=== PATIENT | female | born 1980 | race Caucasian/White ===

== ENCOUNTER 2018-12-14 16:40 | Observation (INO) ==
[2018-12-14] MEDS ORDERED: SODIUM CHLORIDE 0.9% INJ SCH (18:15)
--- NOTE | 2018-12-14 18:38 | Diag Imaging Result Doc PS360 ---
EXAM: CHEST-2 VIEWS HISTORY: SOB TECHNIQUE: Chest two views COMPARISON: 09/11/2014 FINDINGS: The lungs are well expanded. The heart is not enlarged. The vessels are not distended. There are no infiltrates. No pleural effusions. Left lower lobe granuloma. IMPRESSION: No acute abnormality. Electronically signed by Jermaine Birmingham 12/14/2018 6:35 PM
[2018-12-14 18:54] LABS: BASO# 0.02 X1000 (0.0-0.2); BASO% 0.2 % (0.0-0.8); EOS% 1.1 % (0.0-10.0); HEMATOCRIT 42.2 % (37.0-47.0); HEMOGLOBIN 14.1 g/dL (12.0-16.0); LYMPH# 3.44 X1000 (1.2-3.4); LYMPH% 39.5 % (20.5-51.1); MCHC 33.4 g/dL (33-37); MCV 98.8 FL (81-99); MONO# 1.07 X1000 (0.11-0.59); MONO% 12.3 % (1.7-9.3); NEUT# 4.07 X1000 (1.4-6.5); NEUT% 46.9 % (42.2-75.2); PLT 183 X1000 (130-400); RBC 4.27 XMIL (4.2-5.4); RDW 13.1 % (11.5-14.5)
[2018-12-14 19:10] LABS: AGAP 16; AMYLASE 34 U/L (20-200); BUN 6 mg/dL (8-22); C REACTIVE PROT QUANT 3.34 mg/L (0.00-5.00); CALCIUM 8.9 mg/dL (8.8-10.2); CHLORIDE 100 mmol/L (98-107); COSMO 273; CREATININE 0.8 mg/dL (0.5-0.9); ESTIMATED GFR > 60; GLUCOSE 95 mg/dL (70-104); POTASSIUM 3.9 mmol/L (3.5-5.1); SODIUM 138 mmol/L (136-145); TCO2 22 mmol/L (25-35)
[2018-12-14 19:12] LABS: AGAP 16; ALB/GLOB RATIO 0.7; ALBUMIN 2.7 g/dL (3.5-5.0); ALKALINE PHOSPHATASE 187 U/L (32-104); BUN 6 mg/dL (8-22); CALCIUM 8.8 mg/dL (8.8-10.2); CHLORIDE 100 mmol/L (98-107); COSMO 273; CREATININE 0.8 mg/dL (0.5-0.9); ESTIMATED GFR > 60; GLUCOSE 95 mg/dL (70-104); GOT 68 U/L (10-30); GPT 35 U/L (10-36); LIPASE 7 U/L (13-60); MAGNESIUM 1.4 mg/dL (1.5-2.7); POTASSIUM 3.9 mmol/L (3.5-5.1); SODIUM 138 mmol/L (136-145); TCO2 22 mmol/L (25-35); TOTAL BILIRUBIN 1.03 mg/dL (0.20-1.00); TOTAL PROTEIN 6.7 g/dL (6.3-8.3)
[2018-12-14 19:32] LABS: TSH 5.3 uIUmL (0.27-4.20)
[2018-12-14] MEDS ORDERED: MAGNESIUM SULFATE 2 GM/S.W.I. 2 GM/50 ML IVPB IV ONE (20:38)
[2018-12-14] MEDS: ZANAFLEX PO SCH (21:27)
[2018-12-14] MEDS: ULTRACET 37.5MG/325MG PO SCH (21:27)
[2018-12-14] MEDS: PEPCID IV SCH (21:27)
[2018-12-14] MEDS: LOVENOX SUBQ SCH (21:28)
[2018-12-14] MEDS: AMBIEN PO SCH (21:28)
--- NOTE | 2018-12-14 21:38 | HISTORY AND PHYSICAL ---
CHIEF COMPLAINT: Decreased sensation from mid breast level all the way down since last week. 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 Upon examination, there was decreased sensation below breast level. No weakness. History of seizures. No headaches. No vision problems. No history of incontinence of bladder and bowel. Basically admitted to the hospital to rule out transverse myelitis. Family wants also to rule out multiple sclerosis. Significant family history. Basically admitted to the hospital for observation for diagnosis. PAST MEDICAL HISTORY: Chronic anxiety, hypertension, reflux disease, depression, metabolic syndrome, recurrent pancreatitis due to pancreas divisum, vitamin B12 deficiency. PAST SURGICAL HISTORY: Cholecystectomy, history of ERCP with stent. MEDICATIONS: Prilosec 40 mg daily, Carafate 1 g b.i.d., Ambien 10 at bedtime, Prozac 40 mg daily, Ultracet 1 tablet q.6, Zofran as needed for nausea, vitamin D 50,000 units once a week, Tizanidine 8 mg at bedtime. ALLERGIES: Not known. SOCIAL HISTORY: , disabled, lives in [place]. No smoking. No alcohol. 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 FAMILY HISTORY: Mother with history of kidney stones. Father has hypertension, diabetes. REVIEW OF SYSTEMS: HEENT: No headache, seizures. No vision problem. No earache. No sore throat. Neck: No neck rigidity. Cardiopulmonary: No chest pain, shortness of breath, PND, orthopnea. Gastrointestinal: No nausea, vomiting, abdominal pain. No hematochezia or bleeding per rectum. Genitourinary: No history of hesitancy, frequency, dysuria. No swelling of feet. No weakness. Neurological: Decreased sensation at T4 level all the way down. No weakness noted. PHYSICAL EXAMINATION: VITAL SIGNS: Temperature is 98 degrees, tachycardic. Blood pressure is high, 5 feet 11 inches and 249 pounds. HEENT: Atraumatic, normocephalic. Pupils equal, reactive to light. TMs are normal. Nose and throat are within normal limits. NECK: Supple. No lymphadenopathy. No goiter. CHEST: Bilateral air entry. HEART: Sounds are regular. No murmur. ABDOMEN: Belly is soft, nontender. Good bowel sounds. No masses palpable. EXTREMITIES: No peripheral edema or cyanosis. NEUROLOGICAL: No obvious neurological deficits except decreased sensory exam at T5 level. Reflexes are intact. INVESTIGATIONS: CBC: White cell count 8.7, hematocrit 42, platelets 183,000. SMA 7 is normal. Magnesium 1.4, total bilirubin 1.0, AST 68, alkaline phosphorous 187, amylase 34, lipase 7. B12 is high. TSH 5.3. Chest x-ray: No acute abnormality. ASSESSMENT AND PLAN: 1. A 38-year-old white female presented to my office with a 2-week history of sensory perception changes from the breast level, without any weakness, incontinence. No history of rash. Rule out transverse myelitis. Plan is MRI of the brain, T- spine and L- spine. Check the B12 and copper levels. Neurology consult. 2. Hypomagnesemia. Replace the magnesium. 3. Deep venous thrombosis and gastrointestinal prophylaxis with Lovenox and Pepcid. 4. Reconcile home medications and based on that further recommendations will be followed. cc: Sherman Taylor MD MTDD
[2018-12-15] MEDS: ULTRACET 37.5MG/325MG PO SCH ×3 (03:22→13:59)
[2018-12-15] MEDS: PRILOSEC PO SCH (09:35)
[2018-12-15] MEDS: PEPCID IV SCH ×2 (09:36→20:08)
[2018-12-15] MEDS: PROZAC PO SCH (09:36)
--- NOTE | 2018-12-15 13:20 | Diag Imaging Result Doc PS360 ---
MRI BRAIN W/WO CONTRAST - 12/15/2018 INDICATION: CVA COMPARISON: Head CT 09/10/2014 FINDINGS: There is no area of restricted diffusion. The ventricles and sulci are normal in size and contour. No intracranial mass or hemorrhage. No area of abnormal contrast enhancement. Midline structures including the optic chiasm and pituitary are normal. IMPRESSION: Negative exam. Electronically signed by Fermin Das 12/15/2018 1:18 PM
--- NOTE | 2018-12-15 13:26 | Diag Imaging Result Doc PS360 ---
MRI LUMBAR SPINE W/O CONTRAST - 12/15/2018 INDICATION: back pain COMPARISON: None FINDINGS: Alignment is anatomic. Vertebral body heights and intervertebral disc spaces are preserved. There is a benign hemangioma in L3. Otherwise bone marrow signal is normal. There is some disc desiccation at L4-L5 and L5-S1. No disc herniation. No central canal or neural foraminal stenosis. There is moderate facet degeneration bilaterally at L4-L5 and L5-S1. IMPRESSION: Early lumbar spondylosis. No acute disease. Electronically signed by Fermin Das 12/15/2018 1:24 PM
--- NOTE | 2018-12-15 14:09 | Diag Imaging Result Doc PS360 ---
MRI THORACIC SPINE W/WO CON - 12/15/2018 INDICATION: Transverse myletis COMPARISON: None FINDINGS: Alignment is anatomic. Vertebral body heights and intervertebral disc spaces are preserved. Bone marrow signal is normal. The thoracic cord is normal in signal. No central canal stenosis. No disc herniations. No mass or adenopathy. No abnormal contrast enhancement. IMPRESSION: Negative exam. Electronically signed by Fermin Das 12/15/2018 2:07 PM
--- NOTE | 2018-12-15 14:35 | CONSULTATION ---
DATE OF CONSULTATION: 12/15/2018 LOCATION: Room 311. HISTORY OF PRESENT ILLNESS: Ms. Senior is 38 years old, and she reports numbness from the chest down. History from the patient is that she noticed numbness across her abdomen bilaterally approximately a month ago. She reports this was prominent, confined to the area between the breasts and the groin, and then resolved spontaneously in a few days. About 2 weeks later, she reports similar numbness across the abdomen, and numbness then descended her legs to the knees, then ascended to just above the breasts, and then descended to the feet, always symmetric. She has had some soreness in the limb joints. She believes she was having some gait difficulty, and thinks she might have fallen, but she is not able to report anything specifically. She reports noticing some bruises that she cannot account for, and she thinks she might have fallen. She had not had any incontinence until she walked to the bathroom today and experienced fecal incontinence briefly. She has not lost bladder control. She reports no problems above the neck, and specifically no vision disturbance, facial asymmetry, trouble with speech or swallowing. She has not had trouble using her arms. She reports past history of "seizures," and she reports possible seizure episode within the last few weeks. She does not take medicine for seizure management. She reports a family history of multiple sclerosis. Workup here includes lab showing AST 68, alkaline phosphatase 187, TSH 5.3 (computer record shows TSH 1.7 and free T4 of 1.05 in 2015, no free T4 reported this admission). Imaging this admission includes a brain MRI and lumbar MRI, both completely unremarkable. She has had [address] cervical spine CT showing nothing remarkable. She has been afebrile here. MEDICATIONS: Home medication list includes fluoxetine, ondansetron, promethazine, tizanidine, tramadol/acetaminophen, zolpidem, calcium, ergocalciferol, multivitamin, sucralfate. PHYSICAL EXAMINATION: She is awake, alert, mostly attentive. Speech is not dysarthric. Language function is intact. Memory seems good. Head and neck are unremarkable. Straight leg raising is negative bilaterally. Hands and feet are warm. Visual brantley are full to confrontational finger counting. Extraocular movements are full. Facial motility is normal and symmetric. Facial sensation is intact. Gag is intact. Tongue is midline. She can hear. Shoulder shrug is equal. Strength is normal in the arms and legs on careful testing. Limb tone is symmetric. Plantar response is flexor bilaterally. Reflexes are 1+ at the ankles, 2+ at the knees, 1+ at the wrists, all symmetric. She reports diminished pinprick and light touch appreciation over the legs and abdomen. She has some inconsistent responses to pinprick testing over the right hand. Pinprick is intact over the left hand. Proprioception is normal at the great toe MTP joint bilaterally. I did not test her gait. IMPRESSION: 1. Subjective numbness below the chest, with no definite objective neurologic finding. Negative imaging is reassuring. Cervical MRI would be a reasonable next step if her complaints persist. I encouraged her to be careful with activities, particularly gait. I do not have any other suggestion right now. 2. She reports "seizure." I saw her in the hospital in 2014 after several possible seizure episodes. EEG and imaging were negative then. Those episodes were eventually attributed to alcohol withdrawal. I do not find report that she had seizure medication recommended. If Dr. Taylor would like to have the seizure question further evaluated, that can be considered inpatient or outpatient. Thank you for asking Neurology to see Ms. Senior. cc: MD Sherman Herrmann III, MD MTDD
[2018-12-15] MEDS ORDERED: TORADOL IV ONE (19:44)
[2018-12-15] MEDS ORDERED: TORADOL IV PRN (19:45)
[2018-12-15] MEDS: ZANAFLEX PO SCH (20:08)
[2018-12-15] MEDS: LOVENOX SUBQ SCH (20:08)
[2018-12-15] MEDS: AMBIEN PO SCH (20:08)
--- NOTE | 2018-12-15 20:42 | PROGRESS NOTE ---
DATE: 12/15/2018 SUBJECTIVE: Patient still has some numbness, waiting for workup. No neurological deficits. No incontinence of urine. Dr. Cid has been consulted. OBJECTIVE: Vital Signs: Temperature is 98 degrees, pulse 95. Vitals are stable. General: Heavy-set. HEENT: Within normal limits. Neck: Supple. Chest: Clear. Heart: Sounds are regular. Abdomen: Belly is soft, nontender. Neurologic: No obvious neurological deficits noted. INVESTIGATIONS: B12 is normal. Free T4 slightly low. TSH is high. Lipase is normal. Amylase is normal. ASSESSMENT AND PLAN: 1. Sensory deficits at T4 level. Rule out transverse myelitis. Waiting for MRI of thoracic spine and MRI of the brain, and Dr. Cid consulted. 2. Follow up on copper levels. 3. Hypothyroidism, subclinical. Continue to monitor. 4. Replace the magnesium. 5. Based on this, further recommendations will be followed. LEVEL OF DOCUMENTATION: [25] cc: Sherman Taylor MD MTDD
[2018-12-16] MEDS: ULTRACET 37.5MG/325MG PO SCH ×3 (01:50→08:50)
[2018-12-16] MEDS: PRILOSEC PO SCH (08:50)
[2018-12-16] MEDS: PEPCID IV SCH (08:50)
[2018-12-16] MEDS: PROZAC PO SCH (08:50)
[2018-12-16 12:10] VITALS: BP 138/109
--- NOTE | 2018-12-16 12:49 | PROGRESS NOTE ---
DATE: 12/16/2018 SUBJECTIVE: Ms. Senior had some sensory defect in T4 area and mild hypothyroidism. She had a negative brain scan, as well as a lumbothoracic spine. MRI was negative also. She had mild lumbar spondylosis. Blood pressure today was 146/96. She is complaining of too much pain, and she has multiple joint pains, including feet pains and both knee pains. Movements of the knees are painful. Her lab data has been unremarkable, except her TSH was 5.3. She had a consultation with Dr. Cid also. She has a multitude of problems. She says her pain is excruciating, and she is on tramadol every 6 hours and Toradol injections 15 mg every 6 hours p.r.n. Probably put her on some gabapentin today and see if that helps her pain. -9 cc: MD Sherman Mary MD
[2018-12-16] MEDS ORDERED: NEURONTIN PO SCH (13:00)
--- NOTE | 2018-12-17 20:22 | DISCHARGE SUMMARY ---
ADMISSION DATE: 12/14/2018 DISCHARGE DATE: 12/16/2018 FINAL DIAGNOSIS: Midback pain with sensory changes. Etiology is not clear. SECONDARY DIAGNOSES: 1. Hypertension. 2. Acid reflux disease. 3. Depression. 4. Metabolic syndrome. 5. Recurrent pancreatitis due to pancreas divisum. 6. Vitamin B12 deficiency. 7. Hypomagnesemia. 8. Chronic anxiety. 9. Subclinical hypothyroidism CONSULTS: Dr. Cid. BRIEF HISTORY: Please see the H P that was done on 12/14/2018. In brief, she is a 38-year-old, white female, with the above problems, came in with 2-week history of midback discomfort associated with no sensory feeling all the way down. No weakness. No incontinence of bladder or bowels. The patient's mother was concerned about multiple sclerosis versus white matter disease. She was very emotional. Basically, admitted to the hospital for observation. HOSPITAL COURSE: Followup workup, MRI of thoracic spine, lumbar spine, and C-spine, did not show any white matter disease. Findings were reassuring. LABORATORY: CBC: White cell count 8.7, hematocrit 42, platelets 183,000. Sodium 138, potassium 3.9, chloride 100, BUN 6, creatinine 0.8, glucose 95. Magnesium 1.4, total bilirubin 1.0, amylase is normal. Vitamin B12 is normal. TSH is slightly high, free T4 is low. Copper levels are pending. Appreciate Dr. Cid's input. We will continue to monitor as an outpatient. The patient was discharged home on 12/16/[address] Oliva. DISCHARGE MEDICATIONS: 1. Prilosec 40 daily. 2. Carafate 1 g p.o. b.i.d. 3. Ambien 10 at bedtime. 4. Prozac 40 daily. 5. Phenergan 25 mg q.6 p.r.n. 6. Ultracet 1 tablet p.o. q.6 for pain. 7. Vitamin D 50,000 units once a week. 8. Zanaflex 8 mg at bedtime. DISCHARGE INSTRUCTIONS: Outpatient follow up on pending labs. cc: MD Lisa Chen III, MD
[2018-12-18] MEDS ORDERED: VITAMIN D PO SCH (09:00)
== END 2018-12-16 14:11 | disposition home or self-care (01) ==
LOC: DIRADM → 3N 16:40
PROVIDERS: ADMIT Internal Medicine; ATTEND Internal Medicine
CPT/HCPCS: 70553; 71020; 71046; 72148; 72157; 80048; 80053; 82150; 82525; 82607; 83690; 83735; 84439; 84443; 85025; 86140; A9270; A9579; J1650; J1885; J3475; S0028

== ENCOUNTER 2019-02-05 11:21 | Inpatient (IN) ==
[2019-02-05] MEDS ORDERED: ZOFRAN ODT PO PRN (13:37)
[2019-02-05] MEDS ORDERED: CARAFATE LIQUID PO PRN (13:37)
[2019-02-05] MEDS ORDERED: ULTRACET 37.5MG/325MG PO SCH (14:00)
[2019-02-05 14:15] LABS: HEMATOCRIT 32.8 % (37.0-47.0); HEMOGLOBIN 11.1 g/dL (12.0-16.0); MCH 33.4 PG (27-31); MCHC 33.8 g/dL (33-37); MCV 98.8 FL (81-99); MPV 9.4 FL (7.4-10.4); PLT 218 X1000 (130-400); RBC 3.32 XMIL (4.2-5.4); RDW 12.8 % (11.5-14.5); WBC 3.34 X1000 (4.8-10.8)
[2019-02-05 14:16] LABS: BASO# 0.01 X1000 (0.0-0.2); BASO% 0.3 % (0.0-0.8); EOS# 0.02 X1000 (0.0-0.7); EOS% 0.6 % (0.0-10.0); LYMPH# 0.81 X1000 (1.2-3.4); LYMPH% 24.3 % (20.5-51.1); MONO# 0.06 X1000 (0.11-0.59); MONO% 1.8 % (1.7-9.3); NEUT# 2.44 X1000 (1.4-6.5)
--- NOTE | 2019-02-05 14:48 | HISTORY AND PHYSICAL ---
DATE: 02/05/2019 CHIEF COMPLAINT: Weakness in her legs and hands. PRESENT ILLNESS: This is one of a few [facility] admissions for this 38-year-old white female patient of Dr. Taylor who was hospitalized in [place] with a couple day progressive history of weakness of her legs and hands. She is unable to walk at this time. She had similar symptoms in September and was hospitalized at [facility]. She was seen by Dr. Cid at that time and no definitive diagnosis was made. She had been in [facility] under Dr. Evans. CT scan of her head with contrast was unremarkable. She had fallen and re-injured a right clavicle repair. She had surgery a week ago and after the fall refractured her right clavicle. She was sent from [place] to [facility] for neurologic evaluation and continued care since she was Dr. Taylor's patient. Other findings include urinary tract infection, generalized weakness and inability to walk, hypokalemia and decreased reflexes. 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 PAST MEDICAL HISTORY: Recent clavicle fracture and repair. CURRENT MEDICATIONS: Ambien 10 mg 1 at bedtime, tramadol q.6 hours p.r.n. pain, Zanaflex 8 mg at bedtime, omeprazole 40 mg daily, Prozac 40 mg 1 daily. ALLERGIES: None known. REVIEW OF SYSTEMS: Workup in September at [facility] and evaluation by Dr. Cid. MRI of her T- spine and lumbar spine reveal no abnormality. Apparently other workup was negative. There is questionable history of drug abuse history. She is obese and there is possibility of sleep apnea. There has been no recent weight change. FAMILY HISTORY: Significant for several family members with multiple sclerosis. SOCIAL HISTORY: Possible alcohol usage history but no significant smoking. PHYSICAL EXAMINATION: Temperature 98.7 degrees, heart rate 92, respirations 22, blood pressure 141/92, O2 saturation on room air 100%. Pain level right shoulder is 7/10.HEENT: Pupils equal, round and reactive to light. Tympanic membranes without inflammation. Pharynx benign. Heart: Regular in rate and rhythm with no murmur, rub or gallop. Lungs: Clear with no rales or rhonchi. Abdomen: Grossly obese with no mass or organomegaly. Extremities: Scar secondary to recent surgery on the right clavicle. Pain with any motion of her right shoulder. Machine [employer] Eng[employer]ver strength 2/5 bilaterally. Leg strength proximal and distal 2/5 bilaterally. Reflexes could not be elicited at knees and elbows. Rectal/Genitalia: Deferred. Sensory reveals decrease sensation in hands and feet. LABORATORY: Potassium at [place] yesterday was 2.4. CBC was normal. IMPRESSION: 1. Neuropathy of undetermined etiology. 2. Inability to stand or walk. 3. Dyspepsia. 4. Hypokalemia. 5. Possible sleep apnea. PLAN: Discussed with Dr. Cid who will see Thursday if she continues to have recurrent symptoms or worsens. Orthopedic consultation is obtained with Dr. Randall. She will be given Lyrica p.o. and IV Solu-Medrol. cc: MD Sherman Gauthier MD
[2019-02-05] MEDS: SOLU-MEDROL IV SCH ×2 (14:49→22:13)
[2019-02-05] MEDS: NS 1,000 ML IV SCH (14:50)
[2019-02-05 15:26] LABS: URINE SOURCE VOIDED
[2019-02-05 15:30] LABS: BILIRUBIN URINE NEGATIVE (NEGATIVE); BLOOD URINE TRACE (NEGATIVE); COLOR YELLOW; GLUCOSE URINE NEGATIVE (NEGATIVE); KETONE URINE NEGATIVE (NEGATIVE); LEUKOCYTES URINE MODERATE (NEGATIVE); NITRITE URINE NEGATIVE (NEGATIVE); PROTEIN URINE NEGATIVE (NEGATIVE); SP GRAVITY URINE 1.019; TURBIDITY URINE CLEAR (CLEAR); UROBILINOGEN URINE NORMAL (NORMAL)
[2019-02-05 15:31] LABS: UR EPITHELIAL CELLS <10 /HPF (<10); URINE BACTERIA NEGATIVE /HPF; URINE RBC <10 /HPF (<10); URINE WBC TNTC /HPF (<10)
[2019-02-05 15:48] LABS: UR AMPHETAMINES QUAL NONE DETECTED (NONE DETECT); UR BARBITUATES QUAL NONE DETECTED (NONE DETECT); UR BENZODIAZEPIN QUAL NONE DETECTED (NONE DETECT); UR CANNABINOIDS QUAL NONE DETECTED (NONE DETECT); UR COCAINE QUAL NONE DETECTED (NONE DETECT); UR OPIATES QUAL PRESUMPTIVE POSITIVE (NONE DETECT); UR PCP QUAL NONE DETECTED (NONE DETECT)
[2019-02-05 15:49] LABS: UR METHADONE QUAL NONE DETECTED (NONE DETECT); UR OXYCODONE QUAL NONE DETECTED (NONE DETECT)
[2019-02-05 16:29] LABS: AGAP 7; ALB/GLOB RATIO 0.7; ALBUMIN 2.3 g/dL (3.5-5.0); ALKALINE PHOSPHATASE 160 U/L (32-104); BUN 4 mg/dL (8-22); CALCIUM 7.3 mg/dL (8.8-10.2); CHLORIDE 107 mmol/L (98-107); COSMO 277; CREATININE 0.6 mg/dL (0.5-0.9); ESTIMATED GFR > 60; GLUCOSE 137 mg/dL (70-104); GOT 50 U/L (10-30); GPT 26 U/L (10-36); POTASSIUM 3.9 mmol/L (3.5-5.1); SODIUM 139 mmol/L (136-145); TCO2 25 mmol/L (25-35); TOTAL PROTEIN 5.5 g/dL (6.3-8.3)
[2019-02-05] MEDS: KLOR-CON PO SCH (18:21)
[2019-02-05] MEDS: NORCO-10 PO PRN ×2 (18:21→22:11)
--- NOTE | 2019-02-05 19:46 | ORTHOPAEDICS CONSULTATION ---
DATE: 02/05/2019 CHIEF COMPLAINT: Right shoulder pain. HISTORY OF PRESENT ILLNESS: This 38-year-old female was roughly 1 to 2 weeks status post ORIF of a clavicle. Apparently she developed some neurological illness and has had progressive weakness in her upper and lower extremities. She has fallen several times and re-injured her clavicle. She was transferred from [place] where she had the surgery to [facility] for care by Dr. Taylor who is her attending physician and evaluation for neurology. 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 This is currently progressing the point where she has profound weakness with inability to mobilize. She complains of some soreness over the shoulder. PAST MEDICAL HISTORY: Is fairly unremarkable. MEDICATIONS: Prior to this included Ambien, tramadol, Zanaflex, and omeprazole. ALLERGIES: None. FAMILY HISTORY: Significant just for multiple sclerosis. PHYSICAL EXAM: Reveals her alert and oriented. Her incision over the right shoulder is clean and dry and well-approximated. There is no signs of infection or redness. There is prominence of the distal aspect of the plate under the skin. She is relatively nontender over the sternoclavicular joint. Shoulder is relatively nontender. She appears to be reduced as far as her glenohumeral joint goes. IMAGING: X-rays reviewed show loss of fixation the distal aspect of the clavicle from the plate with prominence of the plate. ASSESSMENT: Loss of fixation right clavicle fracture. PLAN: I have discussed with the patient that she does have loss of fixation from multiple falls. There is a question about osteoporosis in bone and comminution of the fracture. This is nonemergent and best treated by returning to her initial orthopedic surgeon for further evaluation and revision surgery. Certainly, her neuropathy predominates all her clinical aspect currently. The refracture of the clavicle is not a surgical emergency. I have recommended that she follow up with her orthopedic surgeon in [place] when she is medically stabilized and over her neuropathy for revision surgery. This could be done several weeks or even a month down the road if needed. I will sign off at this point in time. Thanks for asking us to be involved. Sincerely, cc: MD Sherman Moreland MD
[2019-02-05] MEDS: ZANAFLEX PO SCH (20:36)
[2019-02-05] MEDS: LYRICA PO SCH (20:36)
[2019-02-05] MEDS ORDERED: REMERON PO SCH (21:00)
[2019-02-06] MEDS: NS 1,000 ML IV SCH ×2 (02:09→16:40)
[2019-02-06] MEDS: NORCO-10 PO PRN ×3 (02:09→10:20)
[2019-02-06] MEDS: SOLU-MEDROL IV SCH ×3 (06:14→21:47)
[2019-02-06 07:36] LABS: AGAP 13; BUN 5 mg/dL (8-22); CALCIUM 7.4 mg/dL (8.8-10.2); CHLORIDE 107 mmol/L (98-107); COSMO 285; CREATININE 0.5 mg/dL (0.5-0.9); ESTIMATED GFR > 60; GLUCOSE 185 mg/dL (70-104); POTASSIUM 3.7 mmol/L (3.5-5.1); SODIUM 142 mmol/L (136-145); TCO2 22 mmol/L (25-35)
[2019-02-06] MEDS: KLOR-CON PO SCH ×3 (08:59→17:32)
[2019-02-06] MEDS: LYRICA PO SCH ×2 (08:59→21:44)
[2019-02-06] MEDS: PRILOSEC PO SCH (08:59)
[2019-02-06] MEDS ORDERED: PROZAC PO SCH (09:00)
[2019-02-06] MEDS ORDERED: LMX 5 CREAM TOP PRN (11:01)
[2019-02-06] MEDS ORDERED: TOPROL XL PO ONE (11:08)
[2019-02-06] MEDS: DILAUDID IV PRN ×4 (11:22→21:42)
--- NOTE | 2019-02-06 11:36 | PROGRESS NOTE ---
DATE: 02/06/2019 OBJECTIVE: Vital signs: Temperature 97.8 degrees, heart rate 88, respirations 18, blood pressure 150/104, O2 saturation on room air 100%. General: She is in moderate distress, complaining of generalized pain with level 10/10. She states current medicines are not helping. LABORATORY: Potassium back to normal at 3.7, BUN is 5, creatinine 0.5, glucose 185. Vitamin B12 was normal at 817. PLAN: Increase pain medicine with discontinuation of [place] and addition of Dilaudid 1 mg IV q.3 hours p.r.n. Lyrica and mirtazapine are increased. Lidocaine gel is ordered for her shoulder pain. Dr. Randall saw the patient yesterday and discussed with me this morning. He stated that her shoulder injury was not an emergency and wanted her neuropathy to be better before having her shoulder repaired. He preferred having her go back to [place] and having the original doctor who repaired her shoulder to do surgery again after her neuropathy improved. Toprol-XL is added for hypertension. cc: MD Sherman Gauthier MD
[2019-02-06] MEDS: ZANAFLEX PO SCH (21:44)
[2019-02-06] MEDS: REMERON PO SCH (21:44)
[2019-02-07] MEDS: DILAUDID IV PRN ×7 (01:27→21:41)
[2019-02-07] MEDS: NS 1,000 ML IV SCH ×2 (05:04→17:26)
[2019-02-07] MEDS: SOLU-MEDROL IV SCH ×3 (05:53→21:38)
[2019-02-07] MEDS: KLOR-CON PO SCH ×3 (09:01→17:26)
[2019-02-07] MEDS: LYRICA PO SCH ×2 (09:01→20:57)
[2019-02-07] MEDS: PRILOSEC PO SCH (09:01)
[2019-02-07] MEDS: SODIUM CHLORIDE 0.9% INJ SCH (09:19)
[2019-02-07] MEDS: PROTONIX IV SCH (09:19)
[2019-02-07] MEDS: LOVENOX SUBQ SCH (09:19)
--- NOTE | 2019-02-07 19:05 | PROGRESS NOTE ---
DATE: 02/07/2019 SUBJECTIVE: A 38-year-old white female transferred to [facility] from the weekend by Dr. Reed. She has recurrent falls, weakness in both legs. She was admitted last month for possible transverse myelitis, had MRI of thoracic spine and L-spine, which was negative. I never heard anything since then. Apparently, she had a fall, had a right clavicle fracture in [place]. She has a Lowery, asking for more pain medicine. PAST MEDICAL HISTORY: Reviewed. PAST SURGICAL HISTORY: Reviewed. MEDICINES: Reviewed. ALLERGIES: Not known. OBJECTIVE: Vital signs: Temp is 98 degrees. Vitals are stable. HEENT Exam: Within normal limits. Neck: Supple. She had a scar over the right clavicle noted. Chest: Bilateral air entry. Cardiovascular: Heart sounds are regular. Abdomen: Belly is soft, nontender. Neurological: She has normal strength in upper extremities. Lowery was placed. Legs are flaccid. Movement is 1/5. No obvious deficits noted. Reflexes were down. INVESTIGATIONS: SMA 7 is normal. B12 is normal. TSH is normal. Urinalysis negative. ASSESSMENT AND PLAN: 1. Status post right clavicle fracture with recurrent falls. Appreciate Dr. Randall's consult. 2. Deep venous thrombosis prophylaxis with Lovenox. Gastrointestinal prophylaxis with Protonix. 3. Bilateral leg weakness, tingling and numbness. Questionable etiology. Rule out Guillain [place] syndrome. Neurology consult was obtained. Continue IV fluids. Lowery catheter. Waiting to be seen by Dr. Cid. Based on that, further recommendations will be followed. LEVEL OF DOCUMENTATION: 25 minutes. cc: Sherman Taylor MD
[2019-02-07] MEDS: REMERON PO SCH (20:54)
[2019-02-07] MEDS: ZANAFLEX PO SCH (20:54)
[2019-02-08] MEDS: DILAUDID IV PRN ×6 (03:41→21:53)
[2019-02-08] MEDS: PROTONIX IV SCH (06:04)
[2019-02-08] MEDS: SOLU-MEDROL IV SCH ×3 (06:04→21:50)
[2019-02-08] MEDS: NS 1,000 ML IV SCH ×3 (07:31→21:50)
--- NOTE | 2019-02-08 08:35 | CONSULTATION ---
DATE OF CONSULTATION: 02/07/2019 HISTORY OF PRESENT ILLNESS: Ms. Senior is a young woman with history of numbness in the limbs and reported recent weakness, unsteady gait, falling. Her history to me is that she began having numbness across the abdomen and sometimes in the lower extremities a year or so ago. She reports episodes lasting days or weeks at a time. She was in the hospital here last month with reported numbness beginning in the trunk and then involving the legs associated with weakness and unsteady gait. There were no objective findings then. She had extensive workup here then with imaging including MRI of the brain, thoracic and lumbosacral spine, and these were all unremarkable. We do not have recent cervical spine imaging. She was discharged from the hospital last month. She reports feeling increased numbness in the last few weeks. She has had some falls. She fell and injured her right shoulder and had surgery to manage that about 2 weeks ago. She reports feeling more numbness than usual 6 nights ago and then she went to bed. Next morning, she reports she could hardly move any of her limbs. stayed home from work that day, 5 days ago. went to work the next day, 4 days ago. The next day, 3 days ago, she was more numb and reports she could not get herself up. She phoned for ambulance and was brought to the hospital. She believes she is moving her arms better today than on admission. She believes her legs are about the same as on admission. She has not lost bowel or bladder control. She reported 1 brief bowel accident while she was hospitalized last month. She has not had trouble chewing or swallowing. Speech has not been slurred. There has not been vision disturbance. There has not been facial weakness. She reports home medicines include a multivitamin, calcium, fluoxetine, omeprazole, tramadol, gabapentin recently, tizanidine recently, zolpidem every night until hospitalization, vitamin D. In the hospital, she has had mirtazapine and believes that has helped her rest better than zolpidem. She has also received hydromorphone 1 mg dose several daily since admission. Her urine drug screen was positive for opiates. She did not mention any opiate prescriptions when she was going over her home medications with me, but the PDMP shows hydrocodone/acetaminophen 7.5/325 #15 filled on 01/14/2019, #15 on 01/17/2019, #20 on 01/25/2019, #10 on 01/28/2019 with 3 different prescribers listed. Lab this admission shows calcium 7.3, 7.4. WBC was 3340, which is a little bit below her prior baseline. Blood sugars have ranged 130s to 180s this admission. Review of the [facility] computer record shows generally unremarkable blood sugars prior to this admission. She reports A1c at outside lab was normal recently. She reports family history of diabetes mellitus in father and several paternal relatives, but believe she has never been diagnosed with diabetes mellitus. She believes she has not had elevated blood sugars before. She had borderline low free T4 and elevated TSH on admission here last month. She does not take thyroid medicine and reports no diagnosis of low thyroid. She used to use ethanol to excess. She reports no ethanol use in the last few weeks and generally 1 or 2 large servings of wine most days prior to a few weeks ago. B12 level was 817 this admission, over 1000 on 2 prior checks in recent years recorded in this hospital computer system. She has done some reading and wonders about Guillain-[place] syndrome. On exam, Ms. Senior is awake, alert, attentive. She was initially appropriate, but began to cry with physical exam. Speech is not dysarthric. Language function is intact. Memory seems good. I did not test her cognitive function thoroughly. Head and neck are unremarkable. There is no meningismus. Hands and feet are warm. Straight leg raising is negative. She reports discomfort with light touch across the soles and dorsum of the feet. She reports diminished pinprick appreciation in a stocking pattern extending to above the thigh bilaterally. She reports diminished pinprick appreciation over the hands in a glove pattern extending above the elbow bilaterally. Proprioception is good at the great toe MTP joint bilaterally. Reflexes are 1+ at the wrists, 1+ at the elbows, trace at the wrists, 1+ at the knees, uncertain with poor relaxation and associated brisk withdrawal when tested at the ankles. Plantar response is flexor bilaterally, also associated with brisk withdrawal. Her effort fluctuates significantly on motor testing in the limbs. She is able to demonstrate at least 4/5 power in all groups in the arms and legs, except for the finger flexors of the right hand, where she consistently demonstrated only about 3/5 power. Muscle tone is symmetric in the limbs. I did not ask her to stand or walk. Facial motility is symmetric. Tongue is midline. She is edentulous. There is no ptosis. Extraocular movements are full. Visual brantley are full tested by confrontational finger testing. She can hear. IMPRESSION: Subjective generalized weakness and numbness, uncertain etiology. I had recorded better reflexes on exam last month. Otherwise, I do not find anything definitely different now. She may have a peripheral neuropathy with concern for diabetic neuropathy, hypothyroid neuropathy, ethanol related neuropathy, other cause. Her clinical history, considering the greater than 1 year course, and the fluctuating level of deficit, with sensory greater than motor findings and spared reflexes is not typical of acute idiopathic demyelinating polyneuritis (Guillain-[place]), but there might be some concern for a chronic inflammatory demyelinating polyneuropathy. I do not have any urgent suggestion. I have ordered CK and repeat thyroid lab. To be thorough, we might consider cervical MRI and nerve conduction study. These were mentioned prior to discharge last month and we could get those done while she is here now or we could wait and see her later as an outpatient to consider further workup. Since she reports unsteady gait and history of falls, I encouraged her to be careful with activities and to try to avoid falling and injury. Thanks for asking Neurology to see Ms. Senior again. cc: MD Sherman Herrmann III, MD MTDD
[2019-02-08] MEDS: KLOR-CON PO SCH ×3 (09:11→17:45)
[2019-02-08] MEDS: LOVENOX SUBQ SCH (09:11)
[2019-02-08] MEDS: PRILOSEC PO SCH (09:11)
[2019-02-08] MEDS: LYRICA PO SCH ×2 (09:13→20:02)
--- NOTE | 2019-02-08 10:24 | Diag Imaging Result Doc PS360 ---
CT CERVICAL SPINE W/O CONTRAST - 02/08/2019 INDICATION: r/o cervical nerve impingement COMPARISON: 09/10/2014 FINDINGS: Alignment is anatomic. Vertebral body heights and intervertebral disc spaces are preserved. No disc bulge or herniation. Neural foramen are patent. Soft tissues are clear. IMPRESSION: Negative exam. This exam was performed using automated exposure control, adjustment of mA or kV according to patient size, and/or use of iterative reconstruction technique. Electronically signed by Fermin Das 02/08/2019 10:22 AM
--- NOTE | 2019-02-08 10:26 | PROGRESS NOTE ---
DATE: 02/08/2019 Ms. Senior does not have any new complaints. CK was normal. Free T4 is a little bit low. I do not see anything else remarkable in the lab work. Her blood sugars have been elevated this admission and she has been on steroids recently. Computer record here shows blood sugars not elevated previously. This is consistent with her report that she does not have diabetes mellitus. We discussed the possibility of hypothyroid neuropathy. I will defer to Dr. Taylor's judgment on thyroid management. She reports having cervical imaging just completed. I will check on that report. Next step would be to consider nerve conduction study, not urgent. Thanks for asking neurology to see Ms. Senior. cc: MD Sherman Herrmann III, MD MTDD
[2019-02-08] MEDS: DILAUDID PO PRN ×3 (13:21→21:53)
[2019-02-08] MEDS: ZANAFLEX PO SCH (20:02)
[2019-02-08] MEDS: REMERON PO SCH (20:02)
--- NOTE | 2019-02-08 22:23 | PROGRESS NOTE ---
DATE: 02/08/2019 SUBJECTIVE: Appreciate Dr. Cid consult. The patient is not able to ambulate. Requesting for pain medicine. Last A1c was normal. TSH, B12, copper levels were all normal from the previous admission. At this time, patient has weakness in both legs. Reflexes are decreased. Etiology to be determined. The patient wants a lumbar puncture to rule out GBS. OBJECTIVE: Vital signs: Temperature is 98 degrees. Vitals are stable. HEENT: Within normal limits. Lungs: Bilateral air entry. Heart: Sounds are regular. Abdomen: Belly is soft, nontender. Lowery was placed. ASSESSMENT AND PLAN: 1. Bilateral leg weakness, areflexia since last Thursday. Etiology to be determined. Differential diagnosis inflammatory polyneuritis, versus chronic inflammatory demyelinating polyneuropathy. PLAN: 1. As per Dr. Cid's schedule for MRI of C-spine. If it is negative, consider nerve conduction studies and lumbar puncture and increasing the pain medicine every 4 hours. 2. Deep venous thrombosis and gastrointestinal prophylaxis. 3. Right clavicular fracture stable. 4. We will follow up on the pending labs. 5. I appreciate Dr. Cid consult and we will follow closely. LEVEL OF DOCUMENTATION: 25 minutes. cc: Sherman Taylor MD
[2019-02-09] MEDS: DILAUDID IV PRN ×6 (02:39→21:38)
[2019-02-09] MEDS: DILAUDID PO PRN ×5 (02:39→21:37)
[2019-02-09] MEDS: SOLU-MEDROL IV SCH ×2 (06:25→14:34)
[2019-02-09] MEDS: SODIUM CHLORIDE 0.9% INJ SCH (06:26)
[2019-02-09] MEDS: PROTONIX IV SCH (06:26)
[2019-02-09] MEDS: APRESOLINE IV PRN ×2 (10:19→21:39)
[2019-02-09] MEDS: LYRICA PO SCH ×2 (10:23→21:37)
[2019-02-09] MEDS: LOVENOX SUBQ SCH (10:23)
[2019-02-09] MEDS: KLOR-CON PO SCH ×3 (10:23→21:38)
[2019-02-09 11:32] LABS: GLUCOSE CSF 76 mg/dL (39-75)
--- NOTE | 2019-02-09 11:32 | Diag Imaging Result Doc PS360 ---
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 TECHNIQUE: COMPARISON: None. FINDINGS: Risks, benefits, and alternatives were discussed with the patient and informed consent was obtained. The patient was placed in a prone position and was prepped and draped in sterile fashion. Using fluoroscopy guidance, a 3.5" 20-gauge spinal needle was inserted into the thecal sac at the L3 level. The CSF opening pressure was found to be 18 cm H2O, at the upper limit of normal. 14 mL of clear CSF was collected and divided between four tubes. The needle stylette was replaced and the spinal needle was removed intact. There were no known complications. IMPRESSION: Technically successful fluoroscopy-guided lumbar puncture. Electronically signed by Tobi Swartz 02/09/2019 11:30 AM
[2019-02-09 11:35] LABS: PROTEIN CSF 15.5 mg/dL (15-45)
[2019-02-09 12:24] LABS: APPEARANCE CLEAR; RBC BF 0 /cumm; WBC BF 1 /cumm
[2019-02-09] MEDS: NS 1,000 ML IV SCH (12:48)
--- NOTE | 2019-02-09 21:34 | PROGRESS NOTE ---
DATE: 02/09/2019 SUBJECTIVE: The patient is not able to move the leg, still weakness, lack of reflexes, falling. OBJECTIVE: Vital signs: Temperature is 98 degrees, blood pressure is running high. HEENT: Within normal limits. Neck: Supple. Chest: Clear to auscultation. Cardiovascular: Heart sounds are regular. Abdomen: Belly is soft, nontender. Genitourinary: Lowery is placed. INVESTIGATIONS: None reported. ASSESSMENT AND PLAN: 1. Bilateral weakness, areflexia, and the etiology to be determined. MRI C-spine is negative. Consider lumbar puncture to see the albumin. No psychological dissociation. 2. Continue to monitor the weakness. Scheduled for nerve conduction studies. 3. Out of the bed with physical therapy. 4. Deep vein thrombosis prophylaxis with Lovenox and GI prophylaxis with IV Protonix. 5. Etiology is not clear, and we are going to cut down the steroids. 6. Right clavicular fracture, stable. 7. We will follow up on lumbar puncture findings and continue present treatment. LEVEL OF DOCUMENTATION: 35 minutes. cc: Sherman Taylor MD
[2019-02-09] MEDS: REMERON PO SCH (21:37)
[2019-02-09] MEDS: ZANAFLEX PO SCH (21:37)
[2019-02-10] MEDS: DILAUDID PO PRN ×6 (02:29→22:36)
[2019-02-10] MEDS: DILAUDID IV PRN ×6 (02:29→22:37)
[2019-02-10] MEDS: NS 1,000 ML IV SCH ×2 (02:30→15:26)
[2019-02-10] MEDS: PROTONIX IV SCH (06:07)
[2019-02-10] MEDS: KLOR-CON PO SCH ×4 (09:12→16:29)
[2019-02-10] MEDS: LYRICA PO SCH ×2 (09:12→20:24)
[2019-02-10] MEDS: LOVENOX SUBQ SCH (09:13)
[2019-02-10] MEDS: SOLU-MEDROL IV SCH (09:13)
--- NOTE | 2019-02-10 13:15 | PROGRESS NOTE ---
DATE: 02/10/2019 Ms. 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 Features are insufficient to diagnose Guillain-[place] or CIDP. Spinal fluid showed nothing remarkable, specifically normal protein and no cells. I reviewed her history today. She reports heavy ethanol use, stopped about a year ago. In retrospect, she was just beginning to have some of her sensory symptoms then. She has continued to use ethanol mostly to a moderate degree since then. Thyroid has been a little bit low. Blood sugars have been elevated, probably associated with recent steroids. We discussed possible combination of explanations for her neuropathy. I will order serum protein electrophoresis and sedimentation rate. I told her Dr. Taylor will know much better than I do if thyroid is an issue. I encouraged her to be careful. Thanks for asking Neurology to see Ms. Senior. cc: MD Sherman Herrmann III, MD MTDD
[2019-02-10 13:24] LABS: VDRL CSF SEE COMMENTS
[2019-02-10] MEDS: REMERON PO SCH (20:24)
[2019-02-10] MEDS: ZANAFLEX PO SCH (20:24)
[2019-02-10] MEDS: APRESOLINE IV PRN (20:27)
--- NOTE | 2019-02-10 21:02 | PROGRESS NOTE ---
DATE: 02/10/2019 SUBJECTIVE: The patient is asking for more pain medicine now. Not able to move the lower legs. Bedridden. Picture is baffling. LP was done. There was no albumin. No cytological dissociation noted. OBJECTIVE: Temperature is 98 degrees, pulse 108, blood pressure is running high.HEENT: Within normal limits. Chest: Clear. Heart: Sounds are regular. Abdomen: Belly is soft, nontender. Neurologic: No obvious neurological deficits. INVESTIGATIONS: LP findings are normal white cells, normal protein. All the testing was negative. ASSESSMENT AND PLAN: 1. Bilateral leg weakness. Nerve conductions reported sensory neuropathy. Etiology is not clear and the findings not conclusive for acute polyneuritis. 2. Sensory neuropathy. History of prior alcohol abuse. Normal A1c. Normal T4. We will check the SPEP and sedimentation rate is normal. 3. Deep vein thrombosis and gastrointestinal prophylaxis. 4. Pain control as discussed and continue on Lyrica and cut down the steroids. 5. Hypertension. Hydralazine as needed. 6. The picture is baffling about not able to walk. Continue out of the bed with physical therapy. We will consult [facility] placement in [place] since she is not able to walk. 7. Right clavicle fracture, stable. LEVEL OF DOCUMENTATION: 25 minutes. cc: Sherman Taylor MD MTDD
[2019-02-11] MEDS: DILAUDID IV PRN ×6 (03:06→22:02)
[2019-02-11] MEDS: DILAUDID PO PRN ×5 (03:06→22:35)
[2019-02-11] MEDS: APRESOLINE IV PRN ×2 (04:33→12:08)
[2019-02-11] MEDS: NS 1,000 ML IV SCH ×2 (05:18→16:59)
[2019-02-11] MEDS: PROTONIX IV SCH (06:06)
[2019-02-11] MEDS: KLOR-CON PO SCH ×3 (10:00→22:01)
[2019-02-11] MEDS: LYRICA PO SCH ×2 (10:00→22:01)
[2019-02-11] MEDS: COREG PO SCH ×2 (10:00→22:01)
[2019-02-11] MEDS: LOVENOX SUBQ SCH (10:00)
[2019-02-11] MEDS: SOLU-MEDROL IV SCH (10:00)
--- NOTE | 2019-02-11 12:31 | PROGRESS NOTE ---
DATE: 02/11/2019 SUBJECTIVE: Ms. Senior continues to report weakness and numbness in the limbs. She reports "tightness" in the limbs while seated on the side of the bed. I observed her sitting up with assistance from physical therapy. Sedimentation rate was 15. Protein electrophoresis report is pending. I agree with Dr. Taylor's plans for aggressive physical therapy and likely rehab assignment. I encouraged her to give full effort and to pay attention so that she will be safe and not fall. The only documented diagnosis is peripheral neuropathy with uncertain etiology. There may be contribution from ethanol use. If the protein electrophoresis report is unremarkable, I do not think we are going to need any further urgent workup. Further plans will then depend on her clinical course. Thanks for asking Neurology to see Ms. Senior. cc: MD Sherman Herrmann III, MD MTDD
[2019-02-11] MEDS: ULTRACET 37.5MG/325MG PO PRN (13:10)
--- NOTE | 2019-02-11 18:45 | PROGRESS NOTE ---
DATE: 02/11/2019 SUBJECTIVE: The patient is very anxious and wants to know what is going on. I appreciated Dr. Cid's input. OBJECTIVE: On examination, blood pressure is running high. Patient is very emotional. Motor power 1/5. Areflexic. INVESTIGATIONS: Sedimentation rate is 15. SPEP is negative. B12 is normal. ASSESSMENT: 1. Bilateral leg weakness due to diffuse sensory neuropathy, questionable etiology. 2. Right clavicle fracture, stable. 3. Hypertension. PLAN: 1. Physical therapy. 2. Started on Coreg. 3. I am going to repeat A1c, CBC, BMP, free T4, magnesium, TSH, and vitamin D levels. 4. Cut down the intravenous steroids slowly. 5. Changing the pain medicines to the Ultram. 6. We will involve [facility] for rehab placement. 7. Continue deep venous thrombosis and gastrointestinal prophylaxis. 8. Thanks for the Neurology input. LEVEL OF DOCUMENTATION: 25 minutes. cc: Sherman Taylor MD
[2019-02-11] MEDS: ZANAFLEX PO SCH (22:01)
[2019-02-11] MEDS: REMERON PO SCH (22:02)
[2019-02-12] MEDS: DILAUDID IV PRN ×5 (03:00→20:04)
[2019-02-12] MEDS: DILAUDID PO PRN ×2 (03:48→08:33)
[2019-02-12] MEDS: APRESOLINE IV PRN ×2 (04:16→17:01)
[2019-02-12] MEDS: NS 1,000 ML IV SCH (05:37)
[2019-02-12] MEDS: PROTONIX PO SCH (06:08)
[2019-02-12 06:44] LABS: EOS# 0.14 X1000 (0.0-0.7); EOS% 1.5 % (0.0-10.0); HEMATOCRIT 35.6 % (37.0-47.0); HEMOGLOBIN 11.9 g/dL (12.0-16.0); IMM GRAN# 0.03 X1000 (0.0-0.04); IMM GRAN% 0.3 % (0.0-0.5); LYMPH# 3.93 X1000 (1.2-3.4); LYMPH% 41.2 % (20.5-51.1); MCH 33.4 PG (27-31); MCHC 33.4 g/dL (33-37); MONO# 0.92 X1000 (0.11-0.59); MONO% 9.6 % (1.7-9.3); MPV 9.9 FL (7.4-10.4); NEUT# 4.53 X1000 (1.4-6.5); NEUT% 47.4 % (42.2-75.2); PLT 197 X1000 (130-400); RBC 3.56 XMIL (4.2-5.4); RDW 13.4 % (11.5-14.5); WBC 9.55 X1000 (4.8-10.8)
[2019-02-12 06:55] LABS: AGAP 12; BUN 9 mg/dL (8-22); CALCIUM 8.4 mg/dL (8.8-10.2); CHLORIDE 107 mmol/L (98-107); COSMO 281; CREATININE 0.3 mg/dL (0.5-0.9); ESTIMATED GFR > 60; GLUCOSE 80 mg/dL (70-104); MAGNESIUM 1.9 mg/dL (1.5-2.7); POTASSIUM 3.4 mmol/L (3.5-5.1); SODIUM 142 mmol/L (136-145); TCO2 23 mmol/L (25-35)
[2019-02-12 07:02] LABS: FREE T4 1.62 ng/dL (0.93-1.70); TSH 3.61 uIUmL (0.27-4.20)
[2019-02-12] MEDS: KLOR-CON PO SCH ×3 (08:33→20:04)
[2019-02-12] MEDS: SOLU-MEDROL IV SCH (08:33)
[2019-02-12] MEDS: LOVENOX SUBQ SCH (08:33)
[2019-02-12] MEDS: COREG PO SCH ×2 (08:33→20:04)
[2019-02-12] MEDS: LYRICA PO SCH ×2 (08:33→20:04)
[2019-02-12] MEDS ORDERED: DILAUDID IV PRN ×3 (12:31→13:41)
[2019-02-12] MEDS ORDERED: VITAMIN D PO ONE (13:05)
--- NOTE | 2019-02-12 14:49 | PROGRESS NOTE ---
DATE: 02/12/2019 SUBJECTIVE: The patient complains of excruciating pain, weakness, asking for more pain medications, she is max'd out on Dilaudid, Ultram, Lyrica. Symptoms are out of proportion. She has diffuse sensory neuropathy. Further workup, SPEP was negative, and running some low-grade fever. Constipation. PHYSICAL EXAMINATION: Vital signs: Temperature is 100.0, pulse is 106, blood pressure 160/96. HEENT: Exam within normal limits. Chest: Clear. Heart: Sounds are regular, and right clavicle skin is slightly irritated from the recent surgery. Abdomen: Belly is soft, nontender. Neurologic: Weakness subjectively in both lower legs, not able to ambulate. LABS: CBC: White cell count 9.5, hematocrit 35.6, platelet 197. Sodium 142, potassium 3.4, chloride 107, BUN 9, creatinine 0.3. LFTs were normal. Vitamin D is 22.7. A1c 5. Thyroid function tests are normal. ASSESSMENT AND PLAN: 1. Hypokalemia. Replace the potassium. 2. Low-grade fever. Watch for symptoms or signs of infection. 3. Peripherally inserted central catheter on the left side. 4. Vitamin D deficiency and replacement. 5. Discontinue intravenous fluids. 6. Deep venous thrombosis, gastrointestinal prophylaxis. 7. Discontinue intravenous steroids. Physical therapy and rehab placement. 8. MiraLAX for the constipation. 9. Hypertension on Coreg 12.5 p.o. b.i.d. cc: Sheramn Taylor MD [facility]
[2019-02-12] MEDS: REMERON PO SCH (20:04)
[2019-02-12] MEDS: ZANAFLEX PO SCH (20:04)
[2019-02-13] MEDS: DILAUDID IV PRN ×8 (01:13→23:35)
[2019-02-13] MEDS: APRESOLINE IV PRN (04:45)
[2019-02-13] MEDS: PROTONIX PO SCH (06:22)
[2019-02-13] MEDS: LYRICA PO SCH ×2 (08:55→20:05)
[2019-02-13] MEDS: COREG PO SCH ×2 (08:55→20:05)
[2019-02-13] MEDS: ULTRACET 37.5MG/325MG PO PRN ×2 (08:56→15:32)
[2019-02-13] MEDS: KLOR-CON PO SCH ×3 (08:56→17:03)
[2019-02-13] MEDS: LOVENOX SUBQ SCH (08:58)
[2019-02-13] MEDS: MIRALAX PO SCH (08:58)
[2019-02-13] MEDS ORDERED: TYLENOL PO PRN (10:54)
--- NOTE | 2019-02-13 11:47 | PROGRESS NOTE ---
DATE: 02/13/2019 SUBJECTIVE: The patient is running some fever, 100.2, tachycardic. Vitals are stable. Bedridden. Asking for more pain medicine. PICC line on the left side noted. OBJECTIVE: Chest: Clear. Heart: Heart sounds are regular. Abdomen: Belly is soft, nontender. Neurologic: Nonambulatory. LABORATORY DATA: Labs were reviewed yesterday. ASSESSMENT AND PLAN: 1. Bilateral leg weakness, areflexia due to sensory-motor neuropathy, etiology to be determined. All the workup was negative. At this time, consider aggressive physical therapy. 2. Pain control with non-narcotics, along with Lyrica. 3. Spasms, on Zanaflex. 4. Depression, on Remeron, and slowly swapping the medicines from hydromorphone. 5. Hypertension, on Coreg 12.5 by mouth twice daily. 6. Deep venous thrombosis and gastrointestinal prophylaxis. 7. Vitamin D deficiency, on replacement therapy. Continue present treatment. Closely monitor symptoms and signs of infection, and will discuss with the social worker clinical, to be transferred to the rehab hospital in [facility] on Thursday. LEVEL OF DOCUMENTATION: 25 minutes. cc: Sherman Taylor MD
[2019-02-13] MEDS: ZANAFLEX PO SCH (20:05)
[2019-02-13] MEDS: REMERON PO SCH (20:05)
[2019-02-14] MEDS: DILAUDID IV PRN ×6 (05:06→22:05)
[2019-02-14] MEDS: APRESOLINE IV PRN (05:08)
[2019-02-14] MEDS: PROTONIX PO SCH (06:51)
[2019-02-14] MEDS: COREG PO SCH ×2 (08:18→22:00)
[2019-02-14] MEDS: LYRICA PO SCH ×2 (08:18→21:59)
[2019-02-14] MEDS: LOVENOX SUBQ SCH (08:18)
[2019-02-14] MEDS: KLOR-CON PO SCH ×3 (08:18→18:59)
[2019-02-14] MEDS: MIRALAX PO SCH (08:18)
[2019-02-14] MEDS ORDERED: DULCOLAX PO ONE (11:02)
[2019-02-14] MEDS ORDERED: DULCOLAX PR ONE (11:34)
--- NOTE | 2019-02-14 11:52 | PROGRESS NOTE ---
DATE: 02/14/2019 SUBJECTIVE: The patient is still nonambulatory, able to move the legs. Diffuse sensory pains. Bilateral wrist splints noted. Constipation. OBJECTIVE: On exam, temperature is 98, vitals are stable. HEENT exam within normal limits. Neck is supple. Chest is clear. Heart sounds are regular. Belly is soft, nontender. No change in the neurological exam. ASSESSMENT AND PLAN: 1. Bilateral leg weakness, decreased reflexes due to diffuse sensory neuropathy. Ruled out Guillain-[place] syndrome. 2. Peripherally inserted central catheter line on the left side. 3. Hypertension, stable on Coreg. 4. All the workup is negative, which includes normal B12, normal magnesium, normal copper levels, normal A1c, normal thyroid function tests. 5. Lowery is in place. DISPOSITION: Transfer to [facility] tomorrow when the bed is available and we will follow up. LEVEL OF DOCUMENTATION: 25 minutes. cc: Sherman Taylor MD
[2019-02-14] MEDS: ULTRACET 37.5MG/325MG PO PRN (21:59)
[2019-02-14] MEDS: ZANAFLEX PO SCH (22:00)
[2019-02-14] MEDS: REMERON PO SCH (22:00)
[2019-02-15] MEDS: DILAUDID IV PRN ×7 (01:25→20:29)
[2019-02-15] MEDS: PROTONIX PO SCH (06:24)
[2019-02-15] MEDS: LYRICA PO SCH ×2 (10:28→20:28)
[2019-02-15] MEDS: KLOR-CON PO SCH ×3 (10:29→17:13)
[2019-02-15] MEDS: LOVENOX SUBQ SCH (10:29)
[2019-02-15] MEDS: MIRALAX PO SCH (10:29)
[2019-02-15] MEDS: COREG PO SCH ×2 (10:29→20:29)
[2019-02-15] MEDS: ZANAFLEX PO SCH (20:28)
[2019-02-15] MEDS: REMERON PO SCH (20:29)
--- NOTE | 2019-02-15 21:26 | PROGRESS NOTE ---
DATE: 02/15/2019 SUBJECT: The patient is doing better, asking for more pain medicine and I do not understand why she is not able to move. The findings were disproportionate. More pain medicine, more pain medicine. She is crying. On examination temperature is 98 degrees, tachycardic, vitals are stable. Physical exam no change. LABS: None reported. ASSESSMENT AND PLAN: 1. Peripherally inserted central catheter line on the left side. 2. Deconditioning with neuropathy. 3. Vitamin D deficiency and sensory neuropathy. 4. Hypertension. Increasing the Lyrica 200 mg p.o. b.i.d. DISPOSITION: [facility] for rehab placement. She needs a second opinion at [facility] and I spoke to the patient. Right now the pain is maxing out on Lyrica, tramadol, non- narcotics and Zanaflex and Remeron for sleeping and there is nothing we can offer her. Probably needs to go to the Tertiary Center to unravel the situation. LEVEL OF DOCUMENTATION: 25 minutes. cc: Sherman Taylor MD
[2019-02-16] MEDS: DILAUDID IV PRN ×6 (01:02→20:37)
[2019-02-16] MEDS: PROTONIX PO SCH (06:55)
[2019-02-16] MEDS: LOVENOX SUBQ SCH (10:04)
[2019-02-16] MEDS: MIRALAX PO SCH (10:04)
[2019-02-16] MEDS: COREG PO SCH ×2 (10:05→20:38)
[2019-02-16] MEDS: KLOR-CON PO SCH ×3 (10:05→20:39)
[2019-02-16] MEDS: LYRICA PO SCH ×2 (10:06→20:39)
--- NOTE | 2019-02-16 15:43 | Diag Imaging Result Doc PS360 ---
EXAM: MRI C-SPINE W/WO CONTRAST 02/16/2019 HISTORY: Diffuse sensory neuropathy TECHNIQUE: T1-T2 and STIR sagittal, T1 and T2 axial post gadolinium-enhanced T1 fat sat sagittal and axial. COMMENT: No evidence of intrathecal mass or signal abnormality is present and there is no evidence of abnormal gadolinium enhancement in the cord. No previous MRI studies are available for comparison. At the C2-3 level there is no spinal or foraminal stenosis. At C3-4 there is no spinal or foraminal stenosis. At the C3-4-5 level there is no spinal or foraminal stenosis. There is minimal disc bulge. At C5-C6 there is anterior osteophyte formation but no evidence of spinal or foraminal stenosis. At C6-7 there is no spinal or foraminal stenosis. At C7-T1 there is no evidence of spinal or foraminal stenosis. IMPRESSION: No evidence of acute abnormality. Electronically signed by Bradly Olvera 02/16/2019 3:41 PM
[2019-02-16] MEDS: ZANAFLEX PO SCH (20:37)
[2019-02-16] MEDS: REMERON PO SCH (20:39)
--- NOTE | 2019-02-16 22:36 | PROGRESS NOTE ---
DATE: 02/16/2019 SUBJECTIVE: The patient has been crying and a lot of pain despite increasing the Lyrica and the patient's mother called my office this afternoon, wants to be transferred to [place] rather than rehab due to unable to get the diagnosis at [facility]. I did receive the nerve conduction studies that showed diffuse sensory neuropathy. Etiology is not clear. I spoke with Dr. Cid on the telephone and obviously there is no definitive diagnosis why she is not ambulating. She can able to pull the legs usp through but not able to really getting into the bathroom with assistance. She has a PICC line on the left side, asking for more pain. All the workup was essentially unremarkable. Dr. Cid reported there is only 1 tests that she needs MRI of C-spine obviously instead of MRI, we did a CT of the cervical spine is negative. I am going to try to reach to [facility] for a second opinion after this evaluations. PHYSICAL EXAM: Temperature is 98 degrees. Vitals are stable.HEENT: Within normal limits. Has a right clavicle deformed. Chest: Clear. Heart: Sounds are regular. Abdomen: Belly is soft, nontender. Lowery was placed. Extremities: Decreased sensory exam, hypesthesia and not able to move the extremities 2/5. Reflexes are decreased. ASSESSMENT AND PLAN: 1. Bilateral leg weakness, areflexia, sensory neuropathy. 2. Hypertension. 3. Chronic pain anxiety. 4. Right clavicle fracture. 5. Recurrent pancreatitis due to pancreas divisum. 6. Vitamin D deficiency. 7. Subclinical hypothyroidism. 8. Vitamin B12 deficiency. PLAN OF CARE: 1. Dr. Cid believes there is not missing any diagnosis. He believes she has neuropathy and he and I agreed why she is not able to ambulate and anyhow he ordered MRI of C-spine. If nothing pans out, she needs to leave to the tertiary hospital for 2nd opinion and after the MRI I will make the arrangements. In the meantime, we will try to reach the [facility] neurologist on-call. 2. Continue deep vein thrombosis and gastrointestinal prophylaxis, vitamin D replacement and will follow up. LEVEL OF DOCUMENTATION: 35 minutes. cc: Sherman Taylor MD
[2019-02-17] MEDS: DILAUDID IV PRN ×6 (02:02→21:39)
[2019-02-17] MEDS: PROTONIX PO SCH (07:53)
[2019-02-17] MEDS: LYRICA PO SCH ×2 (08:56→21:43)
[2019-02-17] MEDS: COREG PO SCH ×2 (08:56→21:39)
[2019-02-17] MEDS: MIRALAX PO SCH (08:56)
[2019-02-17] MEDS: KLOR-CON PO SCH ×3 (08:56→18:19)
[2019-02-17] MEDS: LOVENOX SUBQ SCH (08:56)
[2019-02-17] MEDS: ULTRACET 37.5MG/325MG PO PRN ×2 (09:10→19:40)
[2019-02-17] MEDS ORDERED: CATHFLO IV ONE (09:25)
[2019-02-17] MEDS ORDERED: STERILE WATER INJ. INJ ONE (09:25)
[2019-02-17] MEDS ORDERED: THIAMINE 100 MG in NS 50 ML IV SCH (13:00)
[2019-02-17 18:33] LABS: URINE SOURCE CATH
[2019-02-17 18:51] LABS: BILIRUBIN URINE NEGATIVE (NEGATIVE); BLOOD URINE LARGE (NEGATIVE); COLOR ORANGE; GLUCOSE URINE NEGATIVE (NEGATIVE); KETONE URINE TRACE mg/dL (NEGATIVE); LEUKOCYTES URINE LARGE (NEGATIVE); NITRITE URINE NEGATIVE (NEGATIVE); PH URINE 5.5; PROTEIN URINE 200 mg/dL (NEGATIVE); SP GRAVITY URINE 1.029; TURBIDITY URINE TURBID (CLEAR); UR EPITHELIAL CELLS >10 /HPF (<10); URINE BACTERIA 4+ /HPF; URINE RBC TNTC /HPF (<10); URINE WBC TNTC /HPF (<10); UROBILINOGEN URINE 2 mg/dL (NORMAL)
[2019-02-17 19:04] LABS: URINE CASTS NONE SEEN; URINE CRYSTALS NONE SEEN; URINE YEAST NONE SEEN
[2019-02-17] MEDS: REMERON PO SCH (21:38)
[2019-02-17] MEDS: ZANAFLEX PO SCH (21:38)
--- NOTE | 2019-02-17 21:53 | PROGRESS NOTE ---
DATE: 02/17/2019 SUBJECTIVE: Family requested to be transferred to [place] for Neurology services with Dr. Joaquin. Repeat MRI C-spine negative. The patient is bedridden. Not able to move. I have made several phone calls today to facilitate as per the family request to be transferred to [facility]. I spoke to Dr. Joaquin on the phone. He said he wanted to check thiamine level. After that, give some thiamine IV. It appears to be all the workup was negative. He would be glad to see as a webmethods consultant and needs to be admitted on the hospitalist services. Then, we made several phone calls to be transferred to hospitalist. Reported that the patient does not need to come here. Needs to be transferred to [facility]. All the middle of the discussions, the nurses conveyed information to the family. The family decided to go for rehab, and then will do as an outpatient for consultation 2nd opinion. In the meantime, her condition has remained same. ASSESSMENT AND PLAN: 1. Bilateral sensory neuropathy. Declining of activities of daily living. 2. Vitamin D deficiency. 3. All the workup was negative. We replaced the Lowery catheter. Continue on PICC line. As per the family will be transferred to the [facility]. From there, she can go for a second opinion. In the meantime, we will replace the thiamine as per Dr. Joaquin's request. LEVEL OF DOCUMENTATION: 25 minutes. cc: Sherman Taylor MD
[2019-02-18] MEDS: DILAUDID IV PRN ×4 (03:54→12:29)
[2019-02-18] MEDS: ULTRACET 37.5MG/325MG PO PRN (06:00)
[2019-02-18] MEDS: PROTONIX PO SCH (06:00)
--- NOTE | 2019-02-18 07:19 | DISCHARGE SUMMARY ---
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 SECONDARY DIAGNOSES: 1. Deconditioning with multiple falls. 2. Right clavicle fracture. 3. Hypertension. 4. Acid reflux disease. 5. Depression. 6. Metabolic syndrome. 7. Vitamin D deficiency. 8. Chronic anxiety. 9. Recurrent pancreatitis due to pancreas divisum. CONSULTS: Dr. Cid, Dr. Randall. PROCEDURES: 1. Cervical spine MRI, no evidence of acute abnormality. 2. Thoracic spine MRI on 12/15/2018 was negative. 3. Lumbar spine MRI on 12/15/2018, early lumbar spondylosis. No acute disease. 4. Cervical CT negative exam. 5. Brain MRI 12/15/2018 negative exam for white matter disease. 6. Lumbar puncture on 02/09/2019. Findings: No cytological disassociation noted. 7. Nerve conduction studies reported diffuse sensory neuropathy most likely etiology ethanol. 8. PICC line on the left side. 9. Lowery catheter. BRIEF HISTORY: Please see the H and P that was done 02/05/[address] Dwayne Perdue. In brief, she is a 38-year-old white female basically transferred from [place] with the progressive history of weakness of legs and hands, unable to walk with multiple falls, sustaining injury to the right clavicle fracture. Initially, the patient had outpatient surgery done in [place]. She keeps on falling, re-injured and refractured the right clavicle. She was sent from [place] to [facility] for further evaluation. The patient has been diagnosed rule out possible Guillain- [place] syndrome. The patient is also hypokalemic. HOSPITAL COURSE: Initial picture was baffling. The patient is not able to move the legs and no reflexes. Dr. Cid was consulted. The patient had an IV access. PICC line was placed on the left side. She was asking for more pain medications because of ongoing severe pain in both legs. For the last 2 months, the patient had extensive workup which includes MRI of the brain, MRI of C- spine, T-spine and L-spine. No evidence of white matter disease. Lumbar puncture did not support for Guillain [place] syndrome. Protein levels were normal. White cells counts are normal. Nerve conduction showed diffuse motor neuropathy for which Dr. Cid did an extensive workup which includes normal A1c, #2 normal SPEP, normal copper levels, normal B12 levels. She has vitamin D is on the low side for which the patient was continues to replaced with vitamin D. The patient has Lowery placed. Unable to go to the bathroom. For the right clavicle fracture, this is not an emergency at this time as per Dr. Randall. The patient needs to improve for ambulation and that issue was addressed by previous orthopedic surgeon in [place]. Family wants a second opinion with Dr. Joaquin in [facility]. I spoke to him on the phone. At this time, he wants to check the BUN level and replace the thiamine IV as well as by mouth. The levels were pending. LABS: CBC: White cell count 9.5, hematocrit 35, MCV 100, platelet 197,000. Sodium 142, potassium 3.4, BUN 9, creatinine 0.3. A1c 5.0. Magnesium 1.9, calcium 8.4, vitamin D 22.7. TSH, free T4 is normal. Lumbar spine fluid white cells 1. CSF glucose 76, total protein 15.5, serum protein electrophoreses normal. CSF VDRL, cryptococcus were negative. Vitamin B1 levels were pending. I discussed with the family there is nothing they can do in [facility] and even if Dr. Joaquin accepts the patient, but he is not going to be admitting physician. Hospitalist said they declined. She needs tertiary care either in [place]. Finally family agreed to go to [facility] for rehab by replacing the thiamine and continue to be treated as neuropathy and if things will not get better can arrange to see Dr. Joaquin as an outpatient. DISCHARGE INSTRUCTIONS: Prilosec 40 mg daily. Ambien 10 at bedtime. Phenergan 25 q.6 as needed for nausea. Prozac 40 daily, Ultracet 1 tab q.6, calcium with vitamin D3 1 tablet daily, vitamin D 33586 units once a week, multivitamin 1 tablet daily and thiamine 10 mg daily for 1 month, Zanaflex 8 mg at bedtime, Remeron 30 at bedtime, Coreg 12.5 p.o. b.i.d., Lovenox 40 mg daily for 1 month since she is not ambulating, Lyrica 200 p.o. b.i.d., MiraLAX 17 g daily. cc: MD Lisa Chen III, MD Dr. Alapati
[2019-02-18] MEDS: KLOR-CON PO SCH (10:05)
[2019-02-18] MEDS: COREG PO SCH (10:05)
[2019-02-18] MEDS: LYRICA PO SCH (10:05)
[2019-02-18] MEDS: MIRALAX PO SCH (10:06)
[2019-02-18] MEDS: LOVENOX SUBQ SCH (10:06)
[2019-02-18 11:52] VITALS: BP 112/70
[2019-02-19] MEDS ORDERED: VITAMIN D PO SCH (09:00)
== END 2019-02-18 12:38 | DRG 74 ==
LOC: DIRADM 11:21 → 3N 13:16
PROVIDERS: ADMIT Internal Medicine; ATTEND Internal Medicine